=== PATIENT | male | born 1980 | race Two or more races ===

== ENCOUNTER 2017-09-13 21:21 | Emergency (ER) | payer SELFPAY ==
[~2017-09-13] VITALS: Ht 167.6 cm; Wt 76.0 kg
[2017-09-14] MEDS ORDERED: KETOROLAC 30MG/ML VIAL IM ONE (03:00)
[2017-09-14] MEDS ORDERED: ONDANSETRON 4MG ODT PO ONE (03:00)
[2017-09-14 03:35] LABS: CLARITY URINE CLOUDY (CLEAR); COLOR URINE YELLOW (YELLOW); GLUCOSE URINE NEGATIVE (NEGATIVE); KETONES URINE NEGATIVE (NEGATIVE); LEUKOCYTE ESTERASE URINE NEGATIVE (NEGATIVE); NITRITE URINE NEGATIVE (NEGATIVE); OCCULT BLOOD URINE NEGATIVE (NEGATIVE); PH URINE 5.5 (4.5-8.0); PROTEIN URINE NEGATIVE (NEGATIVE); SPECIFIC GRAVITY URINE 1.019 (1.005-1.030); UROBILINOGEN URINE 0.2 E.U./dL (0.2-1.0)
[2017-09-14 03:47] LABS: BASOPHILS % 0.8 % (0.0-2.0); HEMATOCRIT. 45.7 % (42.0-52.0); HEMOGLOBIN. 15.6 g/dL (14.0-18.0); LYMPHOCYTES % 20.3 % (20.0-50.0); MEAN CORPUSCULAR HEMOGLOBIN 30.3 pg (28.0-32.0); MEAN PLATELET VOLUME 7.5 fl (7.4-10.4); MONOCYTES % 5.9 % (2.0-8.0); PLATELET 282 x1000/uL (130-400); RED BLOOD CELL COUNT 5.14 mill/uL (4.7-6.1); RED CELL DISTRIBUTION WIDTH 14.2 % (11.6-14.6)
[2017-09-14 03:51] LABS: CHLORIDE 112 mEq/L (98-107)
[2017-09-14 03:53] LABS: INR 1.1; PROTHROMBIN TIME 11.3 sec (9.4-11.6)
[2017-09-14 04:00] LABS: CARBON DIOXIDE 23 mEq/L (21-32)
[2017-09-14 07:30] VITALS: BP 112/81
== END 2017-09-14 07:42 | disposition home or self-care (01) ==
LOC: ER 21:21
DX: S02.2XXA Fracture of nasal bones, initial encounter for closed fracture (principal); S16.1XXA Strain of muscle, fascia and tendon at neck level, initial encounter; S80.211A Abrasion, right knee, initial encounter; S40.811A Abrasion of right upper arm, initial encounter; J44.9 Chronic obstructive pulmonary disease, unspecified; J34.2 Deviated nasal septum; F17.200 Nicotine dependence, unspecified, uncomplicated; Y08.89XA Assault by other specified means, initial encounter; Y93.89 Activity, other specified; Y92.89 Other specified places as the place of occurrence of the external cause; Y99.8 Other external cause status
CPT/HCPCS: 36415; 70450; 70486; 72125; 80053; 81001; 85025; 85610; 96372; 99285; J1885; Q0162; X7700; Z7610

== ENCOUNTER 2018-10-23 10:44 | Emergency (ER) | payer SELFPAY ==
[~2018-10-23] VITALS: Ht 167.6 cm; Wt 77.0 kg
[2018-10-23 10:58] VITALS: BP 129/87
== END 2018-10-23 13:38 | disposition left against medical advice (07) ==
LOC: ER 10:52
DX: S39.82XA Other specified injuries of lower back, initial encounter (principal); F17.210 Nicotine dependence, cigarettes, uncomplicated; V43.52XA Car driver injured in collision with other type car in traffic accident, initial encounter; Y93.89 Activity, other specified; Y92.488 Other paved roadways as the place of occurrence of the external cause
CPT/HCPCS: 99281

== ENCOUNTER 2018-10-23 13:55 | Emergency (ER) | payer SELFPAY ==
[~2018-10-23] VITALS: Ht 167.6 cm; Wt 77.0 kg
[2018-10-23] MEDS ORDERED: KETOROLAC 30MG/ML VIAL IM ONE (16:30)
[2018-10-23 18:32] VITALS: BP 120/88
== END 2018-10-23 18:37 | disposition home or self-care (01) ==
LOC: ER 16:00
DX: S39.012A Strain of muscle, fascia and tendon of lower back, initial encounter (principal); R03.0 Elevated blood-pressure reading, without diagnosis of hypertension; F17.200 Nicotine dependence, unspecified, uncomplicated; V43.52XA Car driver injured in collision with other type car in traffic accident, initial encounter; Y93.89 Activity, other specified; Y92.488 Other paved roadways as the place of occurrence of the external cause
CPT/HCPCS: 72070; 96372; 99283; J1885